=== PATIENT | female | born 1985 | race Caucasian/White ===

== ENCOUNTER → 2021-01-04 | Outpatient (REF) | payer OTHER ==
[2021-01-04 13:13] LABS: BASO # 0.1 10^3/uL (0.0-0.2); BASO % 0.9 % (0.0-1.0); EOS # 0.1 10^3/uL (0.0-0.5); EOS % 1.5 % (0.0-3.0); HEMATOCRIT 38.5 % (36.0-47.0); HEMOGLOBIN 12.6 g/dl (12.0-15.5); LYMPH # 1.7 10^3/uL (1.5-5.0); LYMPH % 30.9 % (24.0-44.0); MEAN CORPUSCULAR HEMOGLOBIN 30.9 pg (27.0-33.0); MEAN CORPUSCULAR HGB CONC 32.7 g/dl (32.0-36.5); MEAN CORPUSCULAR VOLUME 94.4 fl (80.0-96.0); MONO # 0.3 10^3/uL (0.0-0.8); MONO % 5.2 % (2.0-8.0); NEUTROPHILS # 3.3 10^3/uL (1.5-8.5); NEUTROPHILS % 61.1 % (36.0-66.0); PLATELET COUNT, AUTOMATED 279 10^3/uL (150-450); RED BLOOD COUNT 4.08 10^6/uL (4.00-5.40); WHITE BLOOD COUNT 5.4 10^3/uL (4.0-10.0)
[2021-01-04 13:20] LABS: INR 0.94; PARTIAL THROMBOPLASTIN TIME 27.8 SECONDS (24.2-38.5); PROTHROMBIN TIME 12.8 SECONDS (12.5-14.3)
[2021-01-04 13:47] LABS: ALBUMIN 3.9 GM/DL (3.2-5.2); ALT/SGPT 61 U/L (12-78); BILIRUBIN,TOTAL 0.5 MG/DL (0.2-1.0); BLOOD UREA NITROGEN 11 MG/DL (7-18); CARBON DIOXIDE LEVEL 20 MEQ/L (21-32); CHLORIDE LEVEL 112 MEQ/L (98-107); CREATININE FOR GFR 0.61 MG/DL (0.55-1.30); FREE T4 1.61 NG/DL (0.76-1.46); GLOMERULAR FILTRATION RATE > 60.0 (>60); GLUCOSE, FASTING 80 MG/DL (70-100); SODIUM LEVEL 140 MEQ/L (136-145); THYROID STIMULATING HORMONE < 0.005 uIU/ML (0.358-3.740); TOTAL PROTEIN 6.2 GM/DL (6.4-8.2)
[2021-01-05 11:23] LABS: DRVV SCREEN 32.8 SEC
[2021-01-05 11:25] LABS: PTT LUPUS TYPE ANTICOAG SCREEN 0.9 (0-1.2)
== END ==
LOC: M SFHCADAM 11:27
PROVIDERS: ATTEND Physician Assistant
DX: Z01.818 Encounter for other preprocedural examination (principal); E89.0 Postprocedural hypothyroidism; D68.61 Antiphospholipid syndrome